=== PATIENT | female | born 1960 | race Hispanic/Latino ===

== ENCOUNTER → 2018-11-23 | Outpatient (CLI) | payer MEDICARE | END | disposition home or self-care (01) | LOC: OIH 11:16 | PROVIDERS: ATTEND Internal Medicine | DX: M06.4 Inflammatory polyarthropathy (principal) | CPT/HCPCS: 73130; 73630 ==

== ENCOUNTER 2022-06-03 11:15 | Emergency (ER) | payer MEDICARE ==
[~2022-06-03] VITALS: Ht 157.5 cm; Wt 66.7 kg
[2022-06-03] MEDS ORDERED: ACETAMINOPHEN 500 MG TABLET PO ONE (12:00)
[2022-06-03] MEDS ORDERED: ACET-66 PO (13:02)
[2022-06-03 13:06] VITALS: BP 128/56
== END 2022-06-03 13:10 | disposition home or self-care (01) ==
LOC: EDH 11:15
DX: M25.562 Pain in left knee (principal); I12.0 Hypertensive chronic kidney disease with stage 5 chronic kidney disease or end stage renal disease; E11.22 Type 2 diabetes mellitus with diabetic chronic kidney disease; N18.6 End stage renal disease; M81.0 Age-related osteoporosis without current pathological fracture; Z95.1 Presence of aortocoronary bypass graft
CPT/HCPCS: 29505; 73562